=== PATIENT | male | born 1950 | race Caucasian/White ===

== ENCOUNTER → 2016-12-28 | Outpatient (CLI) | payer OTHER ==
[~2016-12-28] MED LIST: ASCO-63 PO; CHOL100010 PO; DIPH25CA65 PO; MULT-506 PO; VLT500 PO
--- NOTE | 2016-12-28 09:56 | DIAGNOSTIC IMAGING REPORT ---
SINGLE CONTRAST GASTROGRAFIN ENEMA CLINICAL HISTORY: History of rectal cancer, rectal stricture and abscess. COMPARISON STUDY: None. FLUOROSCOPY TIME: 2.5 minutes. FINDINGS: Initially, a senior cytogenetic technologist KUB was obtained. A single contrast Gastrografin enema was then performed following placement of a barium enema tip through the anus. 14 fluoroscopic images were obtained. No contrast extravasation was identified. There was no obstruction to flow. Note was made of moderate persistent narrowing at the expected level of the mid rectum. This could reflect a stricture or anastomosis. Diverticulosis of the opacified colon was noted. An apparent loop transverse colostomy was noted and contrast filled the ostomy bag which partially obscured visualization of the colon. Attempt was made to drain and displace the bag. No abnormalities were identified on this exam. Mucosal detail is diminished given single contrast technique. IMPRESSION: 1. Expected findings during single contrast Gastrografin enema through the anus. No contrast extravasation to suggest leak. Contrast filled the colostomy bag which partially obscured portions of the colon however no unexpected findings were identified. 2. Persistent moderate narrowing within the expected region of the mid rectum which could reflect the known rectal stricture or an anastomosis. Electronically signed by: Gavin Mccabe M.D. 12/28/2016 9:54 AM Dictated Date/Time: 12/28/2016 9:39 AM
== END | disposition home or self-care (01) ==
LOC: C.RAD 08:18
PROVIDERS: ATTEND Colon & Rectal Surgery
DX: C20 Malignant neoplasm of rectum (principal); K62.4 Stenosis of anus and rectum

== ENCOUNTER → 2017-03-08 | Day surgery (SDC) | payer OTHER ==
[2017-02-24 11:12] VITALS: Ht 185.4 cm; Wt 90.9 kg
[~2017-03-08] VITALS: Ht 185.4 cm; Wt 90.9 kg
[~2017-03-08] MED LIST changes: +LIDOCAINE HCL 2% 2 ML VIAL (20MG/ML) ONE; +MIDAZOLAM HCL 1 MG/ML 2ML VIAL ONE; +PROPOFOL IV EMULSION 10 MG/ML 20 ML VIAL IV ONE; +SODIUM CHLORIDE 0.9% 500ML 500 ML IV ONE
--- NOTE | 2017-03-08 13:22 | Endo History and Physical ---
History & Physical Date of Service: Mar 08, 2017. Chief Complaint: Encounter for f/u Referring Physician: Bahman Davies History of Present Illness rectal abscess; evaluation neorectum for stricture Past Surgical History Hx Cardiac Surgery: No Hx Internal Defibrillator: No Hx Pacemaker: No Hx Abdominal Surgery: No Hx of Implantable Prosthesis: No Hx Post-Op Nausea and Vomiting: No Hx Cancer Surgery: Yes (COLON RESECTION X 2 WITH COLOSTOMY) Hx Thoracic Surgery: No Hx Orthopedic: No Hx Urinary Tract Surgery: No Family History None Social History Smoking Status: Former Smoker Hx Substance Use: No Hx Alcohol Use: Yes (1-2 DRINKS DAILY) Allergies Coded Allergies: NO KNOWN DRUG ALLERGIES (Verified Allergy, Unknown, ., 03/08/17) Current Medications Reported Home Medications Medications Dose Route/Sig Max Daily Dose Days Date Category Valacyclovir HCl 500 Mg Tab PO Q8 03/08/17 Reported Vitamin C (Ascorbic Acid) 500 Mg Tab 1 Tab PO QAM 02/24/17 Reported Vitamin D (Cholecalciferol) 1,000 Unit Tab 1 Tab PO QAM 02/24/17 Reported Multivitamin (Multivitamins) Tab 1 Tab PO QAM 02/24/17 Reported Benadryl Allergy (Diphenhydramine Hcl) 25 Mg Cap 1 Cap PO QAM 30 02/24/17 Reported Vital Signs Weight (Kilograms): 90.91 Height (Feet): 6 Height (Inches): 1 Date Time Temp Pulse Resp B/P (MAP) Pulse Ox O2 Delivery O2 Flow Rate FiO2 03/08/17 12:58 36.8 72 18 176/82 (113) 96 Room Air Physical Exam AAOx3 Nls1s2 Lungs Abd soft NT/ND + Bs - CCE Assessment and Plan colonoscopy via anus to assess descending colon to stoma if possible with possible dilation. Risk of perforation and dilation discussed with patient. pt agrees to proceed.
--- NOTE | 2017-03-08 14:11 | Discharge Instructions ---
Endoscopy Patient Instructions Date / Procedure(s) Performed Mar 08, 2017. Flex Sig Allergy Information Coded Allergies: NO KNOWN DRUG ALLERGIES (Verified Allergy, Unknown, ., 03/08/17) Discharge Date / Findings Mar 08, 2017. 1) anastomosis at 10 cm with abscess adjacent patent lumen toward divereted limb Medication Instructions Restart Stopped Medication(s): Reported Home Medications Medications Dose Route/Sig Max Daily Dose Days Date Category Valacyclovir HCl 500 Mg Tab PO Q8 03/08/17 Reported Vitamin C (Ascorbic Acid) 500 Mg Tab 1 Tab PO QAM 02/24/17 Reported Vitamin D (Cholecalciferol) 1,000 Unit Tab 1 Tab PO QAM 02/24/17 Reported Multivitamin (Multivitamins) Tab 1 Tab PO QAM 02/24/17 Reported Benadryl Allergy (Diphenhydramine Hcl) 25 Mg Cap 1 Cap PO QAM 30 02/24/17 Reported Reported Home Medications Medications Dose Route/Sig Max Daily Dose Days Date Category Valacyclovir HCl 500 Mg Tab PO Q8 03/08/17 Reported Vitamin C (Ascorbic Acid) 500 Mg Tab 1 Tab PO QAM 02/24/17 Reported Vitamin D (Cholecalciferol) 1,000 Unit Tab 1 Tab PO QAM 02/24/17 Reported Multivitamin (Multivitamins) Tab 1 Tab PO QAM 02/24/17 Reported Benadryl Allergy (Diphenhydramine Hcl) 25 Mg Cap 1 Cap PO QAM 30 02/24/17 Reported Provider Instructions Activity Restrictions - No exercising or heavy lifting for 24 hours. - Do not drink alcohol the day of the procedure. - Do not drive a car or operate machinery until the day after the procedure. - Do not make any important decisions or sign important papers in 24 hours after the procedure. Following Day: - Return to full activity which may include returning to work/school. Diet Start your diet with liquids and light foods (jello, soup, juice, toast). Then eat your usual diet if not nauseated. Treatment For Common After Affects For mild abdominal pain, bloating, or excessive gas: - Rest - Eat lightly - Lie on right side Follow-Up Information Follow-up with Bahman Davies as scheduled Anesthesia Information What You Should Know You have had a procedure that required some medicine to reduce anxiety and discomfort. This treatment is called moderate sedation. After receiving the treatment, you may be sleepy, but you will be able to breathe on your own. The effects of the treatment may last for several hours. Follow these instructions along with Activity/Diet recommendations noted above: * Do NOT do anything where dizziness or clumsiness would be dangerous. * Rest quietly at home today, then you can be up and about tomorrow. * Have a responsible person stay with you the rest of today. * You may have had an I.V. today. If so, you may take the dressing off later today. Recommendations Call your doctor if: * Trouble breathing * Continuous vomiting for more than 24 hours * Temperature above 101 degrees * Severe abdominal pain or bloating * Pain not relieved by pain medicine ordered * There is increased drainage or redness from any incision * A large amount of rectal bleeding greater than 2-3 tablespoons. (If you had a polyp/s removed or have hemorrhoids, a small amount of blood - from the rectum is to be expected.) * You have any unanswered questions or concerns. IN THE EVENT OF A SERIOUS EMERGENCY, GO TO THE NEAREST EMERGENCY ROOM Your discharge instructions were prepared by provider Kaden Ying. Patient Instructions Signature Page Ryan Erwin Patient (or Guardian) Signature/Date: I have read and understand the instructions given to me by my caregivers. Caregiver/RN/Doctor Signature/Date: The above-named patient and/or guardian has received patient instructions on this date. + Original Patient Signature Page (only) stays with chart. Please make copy for patient.
--- NOTE | 2017-03-08 14:27 | GI REPORT ---
Procedure Date: 03/08/2017 1:09 PM Procedure: Colonoscopy Indications: Post-operative assessment, Monitoring for anastomotic recurrence of colon malignancy, Monitoring for anastomosis integrity Medicines: Propofol per Anesthesia Complications: No immediate complications. Estimated blood loss: None. Estimated Blood Loss: Estimated blood loss: none. Procedure: Pre-Anesthesia Assessment: - Prior to the procedure, a History and Physical was performed, and patient medications and allergies were reviewed. The patient's tolerance of previous anesthesia was also reviewed. The risks and benefits of the procedure and the sedation options and risks were discussed with the patient. All questions were answered, and informed consent was obtained. Prior Anticoagulants: The patient has taken no previous anticoagulant or antiplatelet agents. ASA Grade Assessment: III - A patient with severe systemic disease. After reviewing the risks and benefits, the patient was deemed in satisfactory condition to undergo the procedure. After I obtained informed consent, the scope was passed under direct vision. Throughout the procedure, the patient's blood pressure, pulse, and continuouslyoxygen saturations were monitored colonoscopy was performed without difficulty. The scope was introduced through the anus and advanced to the surgical stoma. After I obtained informed consent, the scope was passed under direct vision. Throughout the procedure, the patient's blood pressure, pulse, and continuouslyoxygen saturations were monitored colonoscopy was performed without difficulty. The patient tolerated the procedure well. The quality of the bowel preparation was fair. Findings: The perianal and digital rectal examinations were normal. Pertinent negatives include normal sphincter tone, no palpable rectal lesions and no anal lesion or abnormality was detected. The area from surgical stoma at 70 to rectum at 10 cm appeared overall normal. Areas contained retained stool , inspissated mucus. Sutures at approximately 60 cm above anus. The length of the excluded colon limb below stoma( reached) is 70 cm. A single (solitary) at least 5 cm in diameter mm ulcer was found at 10 cm proximal to the anus. Friable with slight contact and insufflation. No stigmata of recent bleeding were seen. There is evidence of mild diversion colitis with inspissated mucus in the lower portion of the diverted colon.. The colon up to the stomal appliance is overall patent. The anastamosis is patent. The abscess wall is friable/granular. The lumen at anastamosis is not stenotic and easily accommodated the pediatric coloscope. Impression: - The surgical stoma to rectum is normal. - A single (solitary) ulcer at 10 cm proximal to the anus. - No specimens collected. Recommendation: - Discharge patient to home (ambulatory). - Advance diet as tolerated. - Return to referring physician as previously scheduled. MD Kaden Paredes MD 03/08/2017 2:26:37 PM This report has been signed electronically. Note Initiated On: 03/08/2017 1:09 PM I attest to the content of the Intraoperative Record and orders documented therein, exceptions below
--- NOTE | 2017-03-08 14:38 | Anesthesiology Progress Note ---
Anesthesia Post Op Note Date & Time Mar 08, 2017 at 14:38 Vital Signs Pain Intensity: 0 Vital Signs Past 12 Hours Date Time Temp Pulse Resp B/P (MAP) Pulse Ox O2 Delivery O2 Flow Rate FiO2 03/08/17 14:27 73 16 141/64 (89) 96 Room Air 03/08/17 14:12 82 12 113/79 (90) 95 Room Air 03/08/17 12:58 36.8 72 18 176/82 (113) 96 Room Air Notes Mental Status: alert / awake / arousable, participated in evaluation Pt Amnestic to Procedure: Yes Nausea / Vomiting: adequately controlled Pain: adequately controlled Airway Patency, RR, SpO2: stable & adequate BP & HR: stable & adequate Hydration State: stable & adequate Anesthetic Complications: no major complications apparent
[2017-03-08 14:42] VITALS: BP 146/76; PULSE 73; O2SAT 96
== END | disposition home or self-care (01) ==
LOC: C.GI 12:05
PROVIDERS: ATTEND Internal Medicine Gastroenterology
DX: K61.1 Rectal abscess (principal); K62.6 Ulcer of anus and rectum; Z85.038 Personal history of other malignant neoplasm of large intestine; Z87.891 Personal history of nicotine dependence; I10 Essential (primary) hypertension; B02.9 Zoster without complications

== ENCOUNTER → 2017-05-04 | Day surgery (SDC) | payer OTHER ==
[2017-05-02 07:53] VITALS: Ht 185.4 cm; Wt 90.9 kg
[~2017-05-04] VITALS: Ht 185.4 cm; Wt 90.9 kg
[~2017-05-04] MED LIST changes: -MIDAZOLAM HCL 1 MG/ML 2ML VIAL ONE; -SODIUM CHLORIDE 0.9% 500ML 500 ML IV ONE; -VLT500 PO
--- NOTE | 2017-05-04 14:40 | Endo History and Physical ---
History & Physical Date of Service: May 04, 2017. Chief Complaint: ABNORMAL IMAGING Referring Physician: DR ELIZALDE History of Present Illness Pt for surcial revision of colostomy abnormal BE at [facility] Past Surgical History Hx Cardiac Surgery: No Hx Internal Defibrillator: No Hx Pacemaker: No Hx Abdominal Surgery: No Hx of Implantable Prosthesis: No Hx Post-Op Nausea and Vomiting: No Hx Cancer Surgery: Yes (COLON RESECTION X 2 WITH ABCESS>COLOSTOMY) Hx Thoracic Surgery: No Hx Orthopedic: No Hx Urinary Tract Surgery: No Family History None Social History Smoking Status: Former Smoker Hx Substance Use: No Hx Alcohol Use: Yes (1-2 DRINKS DAILY) Allergies Coded Allergies: NO KNOWN DRUG ALLERGIES (Verified Allergy, Unknown, ., 05/04/17) Current Medications Reported Home Medications Medications Dose Route/Sig Max Daily Dose Days Date Category Vitamin C (Ascorbic Acid) 500 Mg Tab 1 Tab PO QAM 02/24/17 Reported Vitamin D (Cholecalciferol) 1,000 Unit Tab 1 Tab PO QAM 02/24/17 Reported Multivitamin (Multivitamins) Tab 1 Tab PO QAM 02/24/17 Reported Benadryl Allergy (Diphenhydramine Hcl) 25 Mg Cap 1 Cap PO QAM 30 02/24/17 Reported Vital Signs Weight (Kilograms): 90.91 Height (Feet): 6 Height (Inches): 1 Date Time Temp Pulse Resp B/P (MAP) Pulse Ox O2 Delivery O2 Flow Rate FiO2 05/04/17 13:40 36.6 83 20 172/86 (114) 98 Room Air Physical Exam AAOx3 Nl s1s2 Lungs CTA Abd soft NT/ND + BS - CCE Assessment and Plan colonoscopy via rectum with possible dilation and if necessary via colostomy
--- NOTE | 2017-05-04 16:14 | Discharge Instructions ---
Endoscopy Patient Instructions Date / Procedure(s) Performed May 04, 2017. Colonoscopy Allergy Information Coded Allergies: NO KNOWN DRUG ALLERGIES (Verified Allergy, Unknown, ., 05/04/17) Discharge Date / Findings May 04, 2017. mild stenosis at anastamosis- dilated to 20 mm- successful Medication Instructions Restart Stopped Medication(s): Reported Home Medications Medications Dose Route/Sig Max Daily Dose Days Date Category Vitamin C (Ascorbic Acid) 500 Mg Tab 1 Tab PO QAM 02/24/17 Reported Vitamin D (Cholecalciferol) 1,000 Unit Tab 1 Tab PO QAM 02/24/17 Reported Multivitamin (Multivitamins) Tab 1 Tab PO QAM 02/24/17 Reported Benadryl Allergy (Diphenhydramine Hcl) 25 Mg Cap 1 Cap PO QAM 30 02/24/17 Reported Reported Home Medications Medications Dose Route/Sig Max Daily Dose Days Date Category Vitamin C (Ascorbic Acid) 500 Mg Tab 1 Tab PO QAM 02/24/17 Reported Vitamin D (Cholecalciferol) 1,000 Unit Tab 1 Tab PO QAM 02/24/17 Reported Multivitamin (Multivitamins) Tab 1 Tab PO QAM 02/24/17 Reported Benadryl Allergy (Diphenhydramine Hcl) 25 Mg Cap 1 Cap PO QAM 30 02/24/17 Reported Provider Instructions Activity Restrictions - No exercising or heavy lifting for 24 hours. - Do not drink alcohol the day of the procedure. - Do not drive a car or operate machinery until the day after the procedure. - Do not make any important decisions or sign important papers in 24 hours after the procedure. Following Day: - Return to full activity which may include returning to work/school. Diet Start your diet with liquids and light foods (jello, soup, juice, toast). Then eat your usual diet if not nauseated. Treatment For Common After Affects For mild abdominal pain, bloating, or excessive gas: - Rest - Eat lightly - Lie on right side Follow-Up Information Follow-up with DR ELIZALDE as scheduled Anesthesia Information What You Should Know You have had a procedure that required some medicine to reduce anxiety and discomfort. This treatment is called moderate sedation. After receiving the treatment, you may be sleepy, but you will be able to breathe on your own. The effects of the treatment may last for several hours. Follow these instructions along with Activity/Diet recommendations noted above: * Do NOT do anything where dizziness or clumsiness would be dangerous. * Rest quietly at home today, then you can be up and about tomorrow. * Have a responsible person stay with you the rest of today. * You may have had an I.V. today. If so, you may take the dressing off later today. Recommendations Call your doctor if: * Trouble breathing * Continuous vomiting for more than 24 hours * Temperature above 101 degrees * Severe abdominal pain or bloating * Pain not relieved by pain medicine ordered * There is increased drainage or redness from any incision * A large amount of rectal bleeding greater than 2-3 tablespoons. (If you had a polyp/s removed or have hemorrhoids, a small amount of blood - from the rectum is to be expected.) * You have any unanswered questions or concerns. IN THE EVENT OF A SERIOUS EMERGENCY, GO TO THE NEAREST EMERGENCY ROOM Your discharge instructions were prepared by provider Kaden Ying. Patient Instructions Signature Page Ryan Erwin Patient (or Guardian) Signature/Date: I have read and understand the instructions given to me by my caregivers. Caregiver/RN/Doctor Signature/Date: The above-named patient and/or guardian has received patient instructions on this date. + Original Patient Signature Page (only) stays with chart. Please make copy for patient.
[2017-05-04 16:24] VITALS: BP 145/85; PULSE 71; O2SAT 96
--- NOTE | 2017-05-04 16:46 | GI REPORT ---
Procedure Date: 05/04/2017 2:58 PM Procedure: Colonoscopy Indications: Preoperative assessment, Post-operative assessment, Follow-up endoscopy after surgery, Monitoring for anastomosis integrity Medicines: Propofol per Anesthesia Complications: No immediate complications. Estimated blood loss: None. Estimated Blood Loss: Estimated blood loss: none. Procedure: Pre-Anesthesia Assessment: - Prior to the procedure, a History and Physical was performed, and patient medications and allergies were reviewed. The patient's tolerance of previous anesthesia was also reviewed. The risks and benefits of the procedure and the sedation options and risks were discussed with the patient. All questions were answered, and informed consent was obtained. Prior Anticoagulants: The patient has taken no previous anticoagulant or antiplatelet agents. ASA Grade Assessment: II - A patient with mild systemic disease. After reviewing the risks and benefits, the patient was deemed in satisfactory condition to undergo the procedure. After I obtained informed consent, the scope was passed under direct vision. Throughout the procedure, the patient's blood pressure, pulse, and oxygen saturations were monitored continuously. The Scope was introduced through the transverse colostomy and advanced to the terminal ileum, with identification of the appendiceal orifice and IC valve. The colonoscopy was performed without difficulty. The patient tolerated the procedure well. The quality of the bowel preparation was good. Findings: The colon (entire examined portion) appeared normal. The terminal ileum appeared normal. Impression: - The entire examined colon is normal. - The examined portion of the ileum was normal. - No specimens collected. Recommendation: - Perform a colonoscopy via rectum today. - Discharge patient to home (ambulatory). - Return to referring physician as previously scheduled. MD Kaden Paredes MD 05/04/2017 4:45:43 PM This report has been signed electronically. Note Initiated On: 05/04/2017 2:58 PM I attest to the content of the Intraoperative Record and orders documented therein, exceptions below
--- NOTE | 2017-05-04 18:39 | Anesthesiology Progress Note ---
Anesthesia Post Op Note Date & Time May 04, 2017 at 18:39 Vital Signs Pain Intensity: 0 Vital Signs Past 12 Hours Date Time Temp Pulse Resp B/P (MAP) Pulse Ox O2 Delivery O2 Flow Rate FiO2 05/04/17 16:24 71 20 145/85 (105) 96 Room Air 05/04/17 16:09 80 20 125/76 (92) 96 Room Air 05/04/17 15:54 86 20 110/68 (82) 96 Room Air 05/04/17 13:40 36.6 83 20 172/86 (114) 98 Room Air Notes Mental Status: alert / awake / arousable, participated in evaluation Pt Amnestic to Procedure: Yes Nausea / Vomiting: adequately controlled Pain: adequately controlled Airway Patency, RR, SpO2: stable & adequate BP & HR: stable & adequate Hydration State: stable & adequate Anesthetic Complications: no major complications apparent
== END | disposition home or self-care (01) ==
LOC: C.GI 13:03
PROVIDERS: ATTEND Internal Medicine Gastroenterology
DX: K94.09 Other complications of colostomy (principal); K56.60 Unspecified intestinal obstruction; Z87.891 Personal history of nicotine dependence; Z85.038 Personal history of other malignant neoplasm of large intestine; Z92.3 Personal history of irradiation; Z92.21 Personal history of antineoplastic chemotherapy

== ENCOUNTER → 2017-05-19 | Outpatient (CLI) | payer OTHER ==
[~2017-05-19] MED LIST changes: -LIDOCAINE HCL 2% 2 ML VIAL (20MG/ML) ONE; +OPTIRAY 320 IV PRN; -PROPOFOL IV EMULSION 10 MG/ML 20 ML VIAL IV ONE
--- NOTE | 2017-05-19 11:23 | DIAGNOSTIC IMAGING REPORT ---
CT ABD/PELVIS IV CONTRAST ONLY CLINICAL HISTORY: PERITONEAL ABSCESS COMPARISON STUDY: None. TECHNIQUE: Following the IV administration of 93 mL of Optiray-320, CT scan of the abdomen and pelvis was performed from the lung bases to the proximal femurs. Images are reviewed in the axial, sagittal, and coronal planes. IV contrast was administered without complication. A dose lowering technique was utilized adhering to the principles of ALARA. CT DOSE: 603.84 mGy.cm FINDINGS: Lower chest: There is a partially visualized 8 mm lingular opacity. This may reflect an area of focal atelectasis although the appearance is nonspecific. There are no significant pleural effusions. Liver: There is hepatic steatosis. No focal masses are visualized. Gallbladder: Markedly contracted. Spleen: Normal in size and attenuation. Pancreas: Unremarkable. Adrenal glands: Unremarkable. Kidneys: There is symmetric renal cortical enhancement. The kidneys are normal in size without hydronephrosis. Bowel: Postsurgical changes are visualized. There is a suture line near the rectosigmoid. 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 There is also a small bowel suture line visualized anteriorly. There is no acute appendicitis. There is no acute diverticulitis. There is presacral soft tissue thickening. There is an air fluid collection within the presacral soft tissues measuring 40 x 27 x 24 mm. The findings are suspicious for a presacral abscess. This could be secondary to breakdown of the distal colonic anastomosis. The adjacent sigmoid demonstrates anterior bone spicules. There are anterior cortical erosive changes at the inferior S2 level. Osteomyelitis of the sacrum cannot be excluded. Peritoneum: There is no free pelvic fluid. There is no evidence of free intraperitoneal air. Vasculature: The abdominal aorta is normal in course and caliber. Adenopathy: None. Pelvic viscera: No bladder abnormalities are visualized. Skeletal structures: There is irregularity anterior sacral cortex as described above. IMPRESSION: 1. Postsurgical changes as described above with creation of a left lower quadrant double barrel colostomy. There is presacral soft tissue thickening. There is a presacral air-fluid collection measuring 40 x 27 x 24 mm, suspicious for a presacral abscess. This could be secondary to breakdown of the distal colonic anastomosis. There is irregularity of the anterior sacral cortex and coexistent osteomyelitis cannot be excluded 2. Hepatic steatosis Electronically signed by: Tima Wesley M.D. 05/19/2017 11:22 AM Dictated Date/Time: 05/19/2017 11:11 AM
== END | disposition home or self-care (01) ==
LOC: C.CTS 10:49
PROVIDERS: ATTEND Colon & Rectal Surgery
DX: K65.1 Peritoneal abscess (principal); Z09 Encounter for follow-up examination after completed treatment for conditions other than malignant neoplasm; Z98.890 Other specified postprocedural states; M79.89 Other specified soft tissue disorders; R19.09 Other intra-abdominal and pelvic swelling, mass and lump; K76.0 Fatty (change of) liver, not elsewhere classified